=== PATIENT | male | born 1945 | race Caucasian/White ===

== ENCOUNTER 2016-08-01 14:45 | Emergency (ER) | payer BC ==
[~2016-08-01] VITALS: Ht 175.3 cm; Wt 74.8 kg
[2016-08-01] MEDS ORDERED: TETANUS,DIPTH,PERTUSS P/F (BOOSTRIX) 0.5 ML VIAL IM ONE (16:59)
--- NOTE | 2016-08-01 17:03 | ED Fall/Injury ---
General Chief Complaint: Trauma-Non Activation Stated Complaint: FALL/FACIAL INJ Nursing Triage Note: PT REPORTS HE WAS WALKING HIS DOGS ET ONE OF THE DOGS TRIPPED HIM. PT REPORTS HE CAUGHT HIMSELF WITH HIS FACE. ABRASIONS NOTED. PT DENIES LOC. DENIES TENDERNESS UPON PALPATION OF CSPINE. Source: patient History of Present Illness Time seen by provider: 16:57 Initial Comments This 71-year-old male presents after apparently tripping while walking his dogs forcefully pulled on the leash causing him to fall and strike his face. The patient fortunately had no loss of consciousness and denies subsequent neck pain paresthesias or weakness to the extremities. The patient primarily sustained an abrasion to his face over his nose and malar areas. The patient also sustained laceration of mucosa of the upper lip. Patient denies associated trauma of the chest abdomen or pelvis. The patient is complaining of moderate pain over the contused abraded areas of his face. Allergies and Home Medications Allergies Coded Allergies: No Known Drug Allergies (Unverified , 08/01/16) Home Medications No Active Prescriptions or Reported Meds Constitutional: No chills, No dizziness, No fever Eyes: Denies Blurred Vision Ears, Nose, Mouth, Throat: denies ear pain, nose paindenies epistaxis, mouth pain Respiratory: No cough Cardiovascular: No chest pain Gastrointestinal: No abdominal pain, No nausea, No vomiting Genitourinary: no symptoms reported Musculoskeletal: No back pain, No joint pain Skin: other (abrasions over the face.) Psychiatric/Neurological: No Symptoms Reported Past Wamnbck-Gnarxi-Icvtjn Hx Patient Social History Recent Foreign Travel: No Contact w/Someone Who Travel: No Recent Infectious Disease Expo: No Reviewed Nursing Assessment Reviewed/Agree w Nursing PMH: Yes Physical Exam Vital Signs Vital Sign - Last 12Hours 08/01/16 15:40 Temp 98.7 Pulse 80 Resp 16 B/P 127/75 Pulse Ox 95 O2 Delivery Room Air Capillary Refill : Less Than 3 Seconds General Appearance: WD/WN no apparent distress HEENT: other (abrasions are noted over the nose and malar areas. There is a superficial laceration to the mucosa of the upper lip. The patient has had tiny chips to the central incisors of the maxilla. Occlusion however is judged to be normal. The remainder of ENT exam was unremarkable.) Neck: non-tender supple Cardiovascular: regular rate, rhythm Respiratory: chest non-tender lungs clear normal breath sounds Gastrointestinal: normal bowel sounds non tender soft Back: normal inspection Extremities: normal range of motion non-tender Neurologic/Psychiatric: no motor/sensory deficits alert normal mood/affect Skin: other (abrasions as noted on the face.) Progress/Results/Core Measures Results/Orders Vital Signs/I&O Vital Sign - Last 12Hours 08/01/16 15:40 Temp 98.7 Pulse 80 Resp 16 B/P 127/75 Pulse Ox 95 O2 Delivery Room Air Blood Pressure Mean: 92 Progress Note : Time: 17:02 Progress Note I discussed the treatment for the abrasions and a superficial laceration to the mucosa of the upper lip of the patient. He is agreeable to soap water to the face and saline swishes for his mucosal laceration. Patient received a TD As it is been 10 years since his last tetanus immunization. Departure Impression Impression: Primary Impression: Fall Qualified Code: W19.XXXA - Unspecified fall, initial encounter Additional Impressions: Closed head injury Qualified Code: S09.90XA - Unspecified injury of head, initial encounter Facial abrasion Qualified Code: S00.81XA - Abrasion of other part of head, initial encounter Disposition: 01 HOME, SELF-CARE Condition: Improved Departure-Patient Inst. Decision time for Depature: 17:04 Referrals: JANELLE CHOWDHURY MD (PCP/Family) Primary Care Physician Patient Instructions: Closed Head Injury (DC) Add. Discharge Instructions: Vicodin for pain. Clean abrasions with soap and water twice daily. Warm saline swishes for laceration upper lip. Close follow-up with your doctor. Return if any problems or questions. All discharge instructions reviewed with patient and/or family. Voiced understanding. Scripts No Active Prescriptions or Reported Meds JANELLE OBRIEN MD Aug 01, 2016 17:03
[2016-08-01 17:10] VITALS: BP 127/75
== END 2016-08-01 17:10 | disposition home or self-care (01) ==
LOC: EDUNIT# 14:45 → ER 14:47
DX: S01.511A Laceration without foreign body of lip, initial encounter (principal); S00.31XA Abrasion of nose, initial encounter; Z23 Encounter for immunization; W01.0XXA Fall on same level from slipping, tripping and stumbling without subsequent striking against object, initial encounter; Y93.K1 Activity, walking an animal; Y99.8 Other external cause status
CPT/HCPCS: 90471; 90715; 99282

== ENCOUNTER 2016-10-30 08:27 | Day surgery (SDC) | payer BC ==
--- NOTE | 2016-10-29 18:19 | HISTORY AND PHYSICAL ---
DATE OF SERVICE: HISTORY OF PRESENT ILLNESS: The patient is a 71-year-old white male who initially presented to the office on 10/21 reporting a 3 week history of lower precordial burning and a fluid sensation in his throat. This was followed by a nonproductive cough. He had a previous history of known reflux for which he had taken Nexium in the past. He resumed this again but his cough has progressed and he is still having reflux symptoms. He denies dysphagia. His weight is down another 3.2 pounds over the past 8 days, and over the past year he has lost 29 pounds. He denies melena or bright red blood per rectum. He accomplished screening coloscopy in 2007 for which he had several hyperplastic polyps removed but no evidence for neoplasia was noted. He has not previously undergone EGD evaluation. PAST MEDICAL HISTORY: Prostate cancer diagnosed in 2002. There has been no evidence for disease recurrence since. Review of his lab reveals that he has not had any blood work done since 07/2015. SOCIAL HISTORY: He is a teacher at [employer] with no past smoking history and occasional social alcohol consumption. PAST SURGICAL HISTORY: Left inguinal hernia repair. He underwent radical prostatectomy in 2003. PHYSICAL EXAMINATION: GENERAL: A thin, white male with a dry cough during the interview. VITAL SIGNS: His blood pressure was 128/80. HEENT: Oral cavity reveals no evidence for pharyngeal erythema. He also denies sore throat. No exudates are noted. CHEST: Clear. CARDIOVASCULAR: Regular rate and rhythm without murmur, S3 or S4. ABDOMEN: Soft, supple, without mass or organomegaly. He has mild epigastric discomfort to palpation without rebound or guarding. EXTREMITIES: No cyanosis, clubbing or edema. ASSESSMENT: For recurrence of reflux symptoms refractory to PPI therapy with likely secondary cough and weight loss as major red flag symptom, he was set up for esophagogastroduodenoscopy evaluation 10/30. In review of his electronic medical record and today's evaluation, 25 minutes of care time was spent by myself and another 10 minutes of staff time setting up his EGD and going over patient instruction. Job ID: [id number] DocumentID: [id number] Dictated Date: 10/29/2016 17:23:06 Epic Specialist Date: 10/29/2016 18:19:15 Dictated By: JANELLE CHOWDHURY MD
[~2016-10-30] VITALS: Ht 175.3 cm; Wt 74.8 kg
[2016-10-30] MEDS ORDERED: D5 LR IV SOLUTION 1,000 ML IV STA (08:45)
[2016-10-30] MEDS ORDERED: NALOXONE 0.4 MG/ML 1 ML (NARCAN) VIAL IVP PRN (08:45)
[2016-10-30] MEDS ORDERED: HURRICAINE EXT TUBE (BENZOCAINE) XX PRN (08:45)
[2016-10-30] MEDS ORDERED: LIDOCAINE JELLY 2% (XYLOCAINE) 5 ML TUBE MM PRN (08:45)
[2016-10-30] MEDS ORDERED: FLUMAZENIL (ROMAZICON) 0.1 MG/ML 5 ML VIAL INJ PRN (08:45)
[2016-10-30] MEDS ORDERED: D5 LR IV SOLUTION 1,000 ML IV ONE (08:47)
[2016-10-30 09:14] VITALS: BP 134/78
[2016-10-30] MEDS ORDERED: fentaNYL INJECTION 100 MCG/2 ML AMP ONE (10:00)
[2016-10-30] MEDS ORDERED: MIDAZOLAM 2 MG/2 ML (VERSED) VIAL ONE ×3 (10:00→10:19)
[2016-10-30] MEDS ORDERED: HURRICAINE EXT TUBE (BENZOCAINE) ONE (10:00)
[2016-10-30] MEDS ORDERED: LIDOCAINE JELLY 2% (XYLOCAINE) 5 ML TUBE ONE (10:00)
[2016-10-30] MEDS: MIDAZOLAM 2 MG/2 ML (VERSED) VIAL IVP PRN ×3 (10:08→10:20)
[2016-10-30] MEDS: fentaNYL INJECTION 100 MCG/2 ML AMP IVP PRN ×2 (10:09→10:13)
--- NOTE | 2016-10-30 10:39 | Pre-Op Note & Conscious Sedat ---
Pre-Operative Progress Note H&P Reviewed The H&P was reviewed, patient examined and no changes noted. Date H&P Reviewed: October 30, 2016 Time H&P Reviewed: 09:55 Conscious Sedation Pre-Proced ASA Class: 2 Airway Mallampati Classification: ([place] appropriate class) I. II. III, IV Lungs Heart ASA score ASA 1: a normal healthy patient ASA 2: a patient with a mild systemic disease (mid diabetes, controlled hypertension, obesity ASA 3: a patient with a severe systemic disease that limits activity (angina , COPD, prior Myocardial infarction) ASA 4: a patient with an incapacitating disease that is a constant threat to life (CHF, renal failure) ASA 5: a moribund patient not expected to survive 24 hrs. (ruptured aneurysm) ASA 6: a declared brain patient whose organs are being harvested. For emergent operations, add the letter E after the classification Grade 2 Sedation Plan: Analgesia, Amnesia, Plan communicated to team members, Discussed options with patient/fam, Discussed risks with patient/fam Note The patient is an appropriate candidate to undergo the planned procedure, sedation, and anesthesia. The patient immediately re-assessed prior to indication. JANELLE CHOWDHURY MD October 30, 2016 10:39
[2016-10-30 10:55] VITALS: BP 119/66
[2016-10-30 11:20] VITALS: BP 119/66
[2016-10-30 11:25] VITALS: BP 119/66
--- NOTE | 2016-10-31 03:07 | OPERATIVE REPORT ---
DATE OF SERVICE: ELECTROENCEPHALOGRAM EGD is performed for evaluation of refractory reflux with weight loss. The patient was placed in the left lateral decubitus position. The endoscope was inserted into the oral cavity and under direct visualization the esophagus was intubated. The endoscope was passed down the esophagus through the stomach into the second portion of the duodenum. Careful inspection was made as the endoscope was withdrawn. FINDINGS: The posterior hypopharynx, arytenoid, aperture, and true and false vocals folds were unremarkable. No evidence for inflammation was noted. Proximal and mid esophagus were unremarkable. There is a small sliding hiatal hernia with very mild erythema confined to the Z-line. There is no evidence of erosive esophagitis, rings, webs, strictures or Goff's change. The cardia and fundus of the stomach were unremarkable. There was some mild antral erythema. A biopsy was obtained and submitted for evidence to pathology. No evidence for ulceration or erosion was noted. The pylorus, the pyloric channel, the duodenal bulb and second portion of the duodenum were unremarkable. ASSESSMENT: Small sliding hiatal hernia is present without evidence of erosive esophagitis. The patient does have mild Z line erythema with symptoms consistent with reflux and likely associated cough. He was advised to continue proton pump inhibitor therapy for another month, finish up Tessalon Perles 200 mg q. 8 hours with water and return if symptoms are not improving, otherwise I will see him back for his regular follow up in 6 months. Job ID: [id number] DocumentID: [id number] Dictated Date: 10/30/2016 11:42:05 Electronics Repair Technician Date: 10/31/2016 03:06:54 Dictated By: JANELLE CHOWDHURY MD [facility]
== END 2016-10-30 11:25 | disposition home or self-care (01) ==
LOC: ENDO 08:27
PROVIDERS: ATTEND Internal Medicine
DX: K21.9 Gastro-esophageal reflux disease without esophagitis (principal); K44.9 Diaphragmatic hernia without obstruction or gangrene; Z85.46 Personal history of malignant neoplasm of prostate
CPT/HCPCS: 88305; 88342